=== PATIENT | male | born 1970 | race Caucasian/White ===

== ENCOUNTER → 2019-11-07 15:33 | Outpatient (CLI) | payer OTHER ==
[2015-10-07 05:02] VITALS: BMI 38.5
[~2019-11-07 15:33] MED LIST: ALDACTONE25 MG PO; ELAVIL10 MG PO; PATOWN MISC; PRAVACHOL20 MG PO; PROPRANOLOL HCL60 M1 PO; ROCALTROL0.25 MCG PO; SYNTHROID125 MCG PO; TERAZOSIN HCL2 MG PO; VITAMIN D31000 UNIT PO; ZESTRIL20 MG PO
== END | disposition home or self-care (01) ==
LOC: D.LAB 15:33
PROVIDERS: ATTEND Internal Medicine Pulmonary Disease
DX: Z11.59 Encounter for screening for other viral diseases (principal)

== ENCOUNTER → 2019-11-11 07:27 | Outpatient (CLI) | payer OTHER ==
[2015-10-07 05:02] VITALS: BMI 38.5
== END | disposition home or self-care (01) ==
LOC: D.CT 06-30 10:00 → D.RT 06-30 11:00 → D.CT 10-13 14:00
PROVIDERS: ATTEND Internal Medicine Pulmonary Disease
DX: Z11.59 Encounter for screening for other viral diseases (principal); R06.09 Other forms of dyspnea; R93.89 Abnormal findings on diagnostic imaging of other specified body structures

== ENCOUNTER → 2020-07-20 10:09 | Outpatient (CLI) | payer OTHER ==
[2020-02-18 15:52] VITALS: BMI 45.1
[~2020-07-20 10:09] MED LIST changes: +BUPROPION HCL100 M1 PO; +BUSPAR10 MG PO; +COZAAR50 MG PO; +FLOMAX0.4 MG PO; +FLORAJEN3 CAPS460 MG PO; +FLUTICASONE PRO16 GM NASAL; +GLUCOPHAGE500 MG PO; +GLUCOTROL XL 5 M5 MG PO; +HYDROCHLOROTH12.5 M1 PO; +INVOKAMET XR 11 EAC1 PO; +IPRAT-ALBUT 0.5-3 ML INH; +LASIX40 MG PO; +LEVOTHYROXINE125 MCG PO; +LEXAPRO20 MG PO; +LISINOPRIL-HCT1 EAC7; +LOSARTAN-HCTZ1 EAC1 PO; +MUCINEX600 MG PO; +PROCARDIA XL PO; +PROTONIX40 MG PO; +SYNTHROID25 MCG PO; +TESSALON PERLE100 MG PO; +VITAMIN D5000 UNI2 PO
== END | disposition home or self-care (01) ==
LOC: D.HCCARDIO 07-12 10:00
PROVIDERS: ATTEND Internal Medicine Cardiovascular Disease
DX: R06.09 Other forms of dyspnea (principal)

== ENCOUNTER 2020-07-28 06:46 | Day surgery (SDC) | payer OTHER ==
[~2020-07-28] VITALS: Ht 172.7 cm; Wt 134.9 kg
--- NOTE | ~2020-07-28 | HEMODYNAMI ---
PATIENT:CIRA IVEY MEDICAL RECORD: [id number] : 66 LOCATION:[facility]ONG ADMISSION DATE: 07/28/20 Generatedon::54 Patient name: CIRA IVEY Patient #: [id number] SSN: [id number] : 1970 Date of study: 07/28/2020 Page: Of Hemodynamic Procedure Report Patient Data Patient Demographics Procedure consent was obtained First Name: CIRA Gender: Male Last Name: UCHE : 1970 Middle Initial: SANJUANITA Age: 49 year(s) Patient #: [id number] Race: SSN: [id number] Additional ID: [id number] Contact details [address]: [address] [place] [address] State: [place] City: [place] Zip code: [address] Past Medical History Performed procedures and imaging results Date Procedure Procedure Results Comments 07/20/2020 Stress testing Positive->Intermediate with SPECT MPI risk Allergies: No known allergies Admission Admission Data Admission Date: 07/28/2020 Admission Time: 6:46 Arrival Date: 07/28/2020 Arrival Time: 0:00 Admit Source: Other Insurance Payor: Private health insurance [facility] #: [id number] Height (in.): 69 BSA: 2.48 (m2) Height (cm.): 175.26 BMI: 45.34 (kg/m2) Weight (lbs.): 307 Weight (kg.): 139.25 Lab Results Lab Result Date: 07/28/2020 Lab Result Time: 0:00 Biochemistry Name Units Result Min Max BUN mg/dl 26 --(----)-* 7 18 Creatinine mg/dl 1.3 --(---*)-- 0.6 1.3 eGFR ml/min 61.79306 *-(----)-- 90 120 NONAFRICAN CBC Name Units Result Min Max Hematocrit % 44.2 --(*---)-- 42 54 Hemoglobin g/dl 14.4 --(*---)-- 13.5 17.5 Procedure Procedure Types Cath Procedure Diagnostic Procedure [facility] w/Coronaries Sedation Charges Moderate Sedation 10-24 minutes Procedure Description Procedure Date Procedure Date: 07/28/2020 Procedure Start Time: 8:42 Procedure End Time: 8:52 Procedure Staff Name Function Michael Henry MD Performing Physician Maylin Man RN Nurse Lamonte Villanueva RN Nurse Jayda Dillard RT Scrub Kelley Martinez RT Monitor Procedure Data Cath Procedure Fluoroscopy Diagnostic fluoroscopy Total fluoroscopy Time: 2 time: 2 min min Diagnostic fluoroscopy Total fluoroscopy dose: 719 dose: 719 mGy mGy Contrast Material Contrast Material Type Amount (ml) Isovue 370 44 Entry Location Entry Primary Successful Side Size Upsize Upsize Entry Closure Natarajan ccessful Closure Location (Fr) 1 (Fr) 2 (Fr) Remarks Device Remarks Radial Right 6 Fr Mechanical artery Short Compression Estimated blood loss: 5 ml Diagnostic catheters Device Type Used For End Catheter Placement DIAGNOSTIC [place] 110cm 5 Procedure Fr catheter ([id number]) Procedure Complications No complications Procedure Medications Medication Administration Route Dosage 0.9% NaCl I.V. 100 ml/hr Oxygen etCO2 Nasal cannula 2 l/min Heparin Flush Bag added to field 2 bags (1000units/500ml NS) Radial Cocktail added to field 1 syringe (Verapamil 2mg/Nitro 400mcg/Heparin 1500units) Lidocaine 2% added to field 20 Oxygen 6 l/min Versed I.V. 1 mg Fentanyl I.V. 50 mcg Vasotec 2.5 mg Versed I.V. 1 mg Hemodynamics Rest BSA: 2.48 (m2) HGB: 14.4 (g/dl) O2 Consumption: Estimated: 266.18 (ml/min) O2 Co nsumption indexed: Estimated:107.33 (ml/min/m) Heart Rate: 38 (bpm) Pressure Samples Time Site Value (mmHg) Purpose Heart Use Rate(bpm) 8:46 LV 117/22,-2 Snapshot 61 8:47 AO 102/77(87) Pullback 69 8:47 LV 98/18,4 Pullback 69 Gradients Valve Time Site 1 Site 2 Mean SEP/DFP Peak To Heart Use (mmHg) (sec/min) Peak Rate (mmHg) (bpm) Aortic 8:47 LV AO 0 69 98/18,4 102/77(87) Calculations Valve P-P Mean Valve Index Valve Source Name Gradient Area Flow (cm2) Aortic 0 0 Snapshots Pre Cath Intra NCS Post Cath Vital Signs Time Heart Resp SPO2 etCO2 NIBP (mmHg) Rhythm Pain Sedation Rate (ipm) (%) (mmHg) Status Level (bpm) 8:10:32 61 24 98 37.7 164/108(128) NSR 0 (11) 10(A) , No pain 8:15:11 59 20 98 36.9 162/107(124) NSR 0 (11) 10(A) , No pain 8:19:49 57 19 95 46 147/109(121) NSR 0 (11) 10(A) , No pain 8:24:20 54 18 91 38.4 158/105(119) NSR 0 (11) 10(A) , No pain 8:28:54 57 17 93 36.2 161/107(131) NSR 0 (11) 10(A) , No pain 8:33:31 60 20 98 40.7 160/102(134) NSR 0 (11) 10(A) , No pain 8:39:19 58 18 91 45.9 141/91(130) NSR 0 (11) 9(A) , No pain 8:43:47 58 20 93 34.6 141/96(108) NSR 0 (11) 9(A) , No pain 8:48:20 66 21 96 44.4 120/82(108) NSR 0 (11) 9(A) , No pain 8:52:46 64 17 95 48.9 136/83(115) NSR 0 (11) 10(A) , No pain Medications Time Medication Route Dose Verified Delivered Reason Notes Effectiveness by by 8:09:12 0.9% NaCl I.V. 100 Michael Lamonte used for ml/hr [facility] Villanueva physics teacher 8:09:22 Oxygen etCO2 2 l/min Michael Aburto used for Nasal [facility] Vill[facility] physics teacher cannula 8:09:37 Heparin Flush added 2 bags Michael Lamonte used for Bag to [facility] Villanueva physics teacher (1000units/500ml field OCONNELL NS) 8:09:45 Radial Cocktail added 1 Michael Lamonte used for (Verapamil to syringe [facility] Villanueva physics teacher 2mg/Nitro field OCONNELL 400mcg/Heparin 1500units) 8:09:55 Lidocaine 2% added 20ml Michael Rodriguez for local to vial [facility] anesthetic field MD OCONNELL 8:21:25 Oxygen simple 6 l/min Michael Rodriguez used for pt slee ps mask [facility] procedure with cpap MD OCONNELL at night and more comfortable with a mask. 8:38:11 Versed I.V. 1 mg Michael Aburto for sedation [facility] Villanueva RN, MD 8:38:33 Fentanyl I.V. 50 mcg Michael Aburto for sedation [facility] Villanue[facility] RN, MD 8:40:28 Vasotec SIVP 2.5 mg [address] [facility] Villanueva RN hypertension 8:42:40 Versed I.V. 1 mg Michael Crumpy for sedation [facility] Villanueva RN, MD Procedure Log Time Note 7:39:00 Informed consent obtained and on chart 7:39:22 Arrival Date: 07/28/2020 12:00:00 AM 7:39:23 Admit Source: Other 7:39:25 Insurance Payor : Private health insurance 7:40:08 ACC Patient presents with Stable Angina CCS Anginal Class 2--Slight limitation of ordinary activity. 7:40:11 Procedure Status Elective Heart Cath (OP). 7:40:12 Time tracking: Regular hours (M-F 7:00 - 5:00) 7:40:18 Plan of Care:Hemodynamics will remain stable., Cardiac rhythm will remain stable., Comfort level will be maintained., Respiratory function will remain adequate., Patient/ family verbilizes understanding of procedure., Procedure tolerated without complication., Recovers from procedure without complications.. 7:41:35 Patient Height : 69 inches 7:41:39 Patient Weight : 307 lbs 7:41:48 Lab results pending. 7:53:47 Stress Test: yes; abnormal INFERIOR, APICAL, LATERAL 7:53:51 Alarms reviewed by R. N. 7:53:51 Sharps counted by scrub and verified by R.N. 7:54:20 Maylin Man RN sent for patient. Start room use. 7:57:59 Patient allergic to No known allergies 7:58:15 Family in waiting room. 7:58:18 Patient NPO since Midnight. 8:00:39 Patient diabetic? Yes. 8:02:30 Patient received from Pre/Post Procedure Room to CCL 1 Alert and oriented. Tansferred to table in Supine position. 8:02:31 Warm blankets applied, and tawanna hugger turned on for patient comfort. 8:02:32 Correct patient and procedure confirmed by team. 8:02:33 ECG and BP/O2 sat monitors applied to patient. 8:02:38 Pre-procedure instructions explained to patient. 8:02:39 Pre-op teaching completed and patient verbalized understanding. 8:02:44 Is the patient allergic to Iodine/contrast media? No. 8:02:46 Was the patient premedicated? Yes 8:02:47 Is patient on blood thinner?No 8:02:49 If diabetic: On Metformin? No 8:02:51 8:02:52 ----Pre-sedation anethsthesia assessment.---- 8:08:59 Vital chart was started 8:09:12 0.9% NaCl 100 ml/hr I.V. was administered by Lamonte Villanueva RN; used for procedure; Verbal order read back and verified. 8:09:22 Oxygen 2 l/min etCO2 Nasal cannula was administered by Lamonte Villanueva RN; used for procedure; Verbal order read back and verified. 8:09:37 Heparin Flush Bag (1000units/500ml NS) 2 bags added to field was administered by Lamonte Villanueva RN; used for procedure; Verbal order read back and verified. 8:09:45 Radial Cocktail (Verapamil 2mg/Nitro 400mcg/Heparin 1500units) 1 syringe added to field was administered by Lamonte Villanueva RN; used for procedure; Verbal order read back and verified. 8:09:55 Lidocaine 2% 20ml vial added to field was administered by Michael Henry MD; for local anesthetic; Verbal order read back and verified. 8:15:41 Full Disclosure recording started 8:15:46 Rhythm: sinus rhythm 8:15:56 Previous problem with sedation/anesthesia? No ? 8:15:57 Snore? Yes 8:15:58 Sleep apnea? Yes 8:15:59 Deviated septum? No 8:16:00 Opens mouth fully? Yes 8:16:01 Sticks out tongue? Yes 8:16:05 Airway obstruction? No ? 8:16:07 Dentures? No ? 8:16:09 Pre procedure: right dorsailis pedis pulse 1+ Palpable, but thready & weak; easily obliterated 8:16:12 Modified Costa's test Ulnar < 7 seconds 8:16:14 Patient pain scale 0/10 ?. 8:16:19 IV patent on arrival in right antecubital with 0.9% NaCl at [facility]. 8:16:26 Right Radial & Right Groin area was prepped with chlora-prep and draped in sterile fashion 8:16:29 Use device set Radial Dx or PCI 8:16:30 ACIST Syringe (56479) opened to sterile field. 8:16:31 Medline Cath Pack ([id number]) opened to sterile field. 8:16:31 Bag Decanter (2002S) opened to sterile field. 8:16:32 ACIST Hand Control (17123) opened to sterile field. 8:16:32 ACIST Manifold (77233) opened to sterile field. 8:16:34 MBrace Wrist Support ([id number]) opened to sterile field. 8:16:35 EMERALD Guide Wire (719-155) opened to sterile field. 8:16:36 SHEATH 6FR RAIN (6597973) opened to sterile field. 8:18:19 Lab Result : Hemoglobin 14.4 g/dl 8:18:19 Lab Result : eGFR NONAFRICAN 61.41534 ml/min 8:18:19 Lab Result : BUN 26 mg/dl 8:18:19 Lab Result : Creatinine 1.3 mg/dl 8:18:19 Lab Result : Hematocrit 44.2 % 8:21:25 Oxygen 6 l/min simple mask was administered by Michael Henry MD; used for procedure; pt sleeps with cpap at night and more comfortable with a mask. Verbal order read back and verified. 8:23:40 H&P Date Dictated: 07/28/2020 New H&P dictated by physician.. 8:34:42 Baseline sample Acquired. 8:37:51 Physician arrived 8:37:51 --------ALL STOP TIME OUT------ 8:37:52 Final Timeout: patient, procedure, and site verified with staff and physician. All members of the team are in agreement. 8:37:54 Right Radial & Right Groin site verified by team. 8:37:57 Fire Safety Assessment: A--An alcohol-based skin anteseptic being used preoperatively., C--Open oxygen or nitrous oxide is being used., D--An ESU, laser, or fiber-optic light is being used. 8:38:06 Physical assessment completed. ASA score P 2 - A patient with mild systemic disease as per Michael Henry MD. 8:38:11 Versed 1 mg I.V. was administered by Lamonte Villanueva RN; for sedation; Verbal order read back and verified. 8:38:11 3a) 45-59 Moderately reduced kidney function. 8:38:14 Maximum allowable contrast dose (3.7 X eGFR X 0.75)172 ml. 8:38:18 Sedation plan: IV Moderate Sedation Medication:Versed, Fentanyl 8:38:33 Fentanyl 50 mcg I.V. was administered by Lamonte Villanueva RN; for sedation; Verbal order read back and verified. 8:40:28 Vasotec 2.5 mg SIVP was administered by Lamonte Villanueva RN; for hypertension; Verbal order read back and verified. 8:42:07 Procedure started. 8:42:14 Local anesthetic to right radial artery with Lidocaine 2% by Michael Henry MD.INITIAL ACCESS ONLY 8:42:40 Versed 1 mg I.V. was administered by Lamonte Villanueva RN; for sedation; Verbal order read back and verified. 8:44:49 SHEATH 6FR RAIN (9757393) opened to sterile field. 8:44:56 A 6 Fr Short sheath was inserted into the Right Radial artery 8:45:37 A DIAGNOSTIC [place] 110cm 5 Fr catheter (415859) was advanced over the wire and used for Procedure. 8:45:45 LV gram done using MELTON 8:46:50 LV hemodynamics recorded. 8:46:52 Injector settings: Ml/sec: 5, Volume: 15, 8:47:01 EF : 55 % 8:47:21 LCA angiography performed. 8:47:23 Injector settings: Ml/sec: 3, Volume: 6, 8:48:40 RCA angiography performed. 8:48:43 Injector settings: Ml/sec: 3, Volume: 6, 8:49:12 Catheter removed. 8:49:17 ZEPHYR LARGE TR BAND (993635) opened to sterile field. 8:49:53 Sheath removed intact; hemostasis achieved with Mechanical Compression to the Right Radial artery. 8:49:56 Procedure ended.(Physican Out) 8:50:14 Fluoroscopy time 02.00 minutes. 8:50:18 Fluoroscopy dose: 719 mGy 8:50:18 Flurop Dose total: 719 8:50:24 Dose Area Product 61201 mGy/cm. 8:50:27 Contrast amount:Isovue 370 44ml. 8:50:29 Maximum allowable dose exceeded? No. 8:50:30 Sharps counted by scrub and verified by R.N. 8:50:33 [place] band inflated with 10cc of air. 8:50:50 Post Procedure Pulses reassessed and unchanged 8:50:52 Post procedure: right dorsailis pedis pulse 1+ Palpable, but thready & weak; easily obliterated. 8:50:55 Post-procedure physical assessment completed. ASA score P 2 - A patient with mild systemic disease as per Michael Henry MD. 8:50:58 Post procedure rhythm: unchanged. 8:51:01 Estimated blood loss: 5 ml 8:51:02 Post procedure instruction explained to patient.Patient verbalizes understanding. 8:51:03 Patient needs reinforcement of post procedure teaching. 8:51:09 Procedure type changed to Cath procedure, Diagnostic procedure, LHC, [facility] w/Coronaries, Sedation Charges, Moderate Sedation 10-24 minutes 8:51:46 Procedure and supply charges have been captured, reviewed, submitted and are correct. 8:51:50 Procedure Complication : No complications 8:51:53 [facility] Findings: MVD- MD will discuss options w/ pt 8:51:56 Operative report dictated upon procedure completion. 8:51:57 See physician's report for complete and final results. 8:51:58 Report given to Pre/Post Procedure Room. 8:52:00 Patient transfered to Pre/Post Procedure Room with Stretcher. 8:52:02 Procedure ended. 8:52:02 Full Disclosure recording stopped 8:52:06 End room use (Document Last) 8:52:43 End room use (Document Last) 8:52:55 End room use (Document Last) 8:54:31 Vital chart was stopped Device Usage Item Name Manufacture Quantity Catalog Hospital Part Current Minima l Lot# / Number Charge Number Stock Stock Serial# Code ACIST Acist 1 [id number] 527779 [id number] [id number] 20 Syringe Medical (29179) Systems Inc Medline Medline 1 [id number] 091930 09129 702045 5 Cath Pack ([id number]) Bag Microtek 1 960892 99958 211295 5 Decanter Medical Inc. () ACIST Hand Acist 1 11997 970368 682694 965486 5 Control Medical (24990) Systems Inc ACIST Acist 1 45699 416992 077256 539630 5 Manifold Medical (05471) Systems Inc MBrace Advanced 1 [id number] 145552 26789 760371 5 Wrist Vascular Support Dynamics ([id number]) EMERALD Cardinal 1 502-185 198163 539637 487464 5 Guide Wire Health (777-107) SHEATH 6FR Cardinal 2 1521447 380247 9462869 083542 5 [facility] (7538039) DIAGNOSTIC Terumo 1 40-8193 752023 499570 073347 5 [place] 110cm 5 Fr catheter (001198) ZEPHYR Cardinal 1 342962 068434 5101985 930447 5 LARGE TR Health BAND (306657) Signature Audit Helm Stage Time Signature Unsigned Intra-Procedure 07/28/2020 Kelley Martinez 8:52:43 AM RT(R) Intra-Procedure 07/28/2020 Maylin Man RN 8:52:55 AM Intra-Procedure 07/28/2020 Michael Sarmiento 8:54:30 AM Kun OCONNELL [facility] [address] [place] [address]
[2020-07-28] MEDS ORDERED: GLUCOTROL ER2.5 MG PO (07:19)
[2020-07-28] MEDS ORDERED: ALDACTONE25 MG PO (07:20)
[2020-07-28] MEDS ORDERED: PROTONIX40 MG PO (07:21)
[2020-07-28] MEDS ORDERED: JARDIANCE10 MG PO (07:24)
[2020-07-28 07:25] VITALS: BP 139/82; Ht 172.7 cm; Wt 134.9 kg
[2020-07-28 08:03] LABS: BASOPHILS 0.8 % (0-2); EOSINOPHILS 3.4 % (0-7); HEMATOCRIT 44.2 % (42.0-54.0); HEMOGLOBIN 14.4 g/dL (13.5-17.5); LYMPHOCYTES 22.8 % (15-50); MCH 29.3 pg (26.0-34.0); MCHC 32.6 g/dL (31.0-37.0); MCV 89.9 fL (80.0-100.0); MEAN PLATELET VOLUME 8.6 fL (7.4-10.4); MONOCYTES 8.2 % (2-11); NEUTROPHILS 64.8 % (40-80); PLATELET COUNT 236 10x3/uL (130-400); RBC 4.92 10x6/uL (4.20-6.10); RDW 15.6 % (11.5-14.5); WBC 6.2 10x3/uL (4.8-10.8)
[2020-07-28 08:16] LABS: ANION GAP 13.3 mmol/L (8-16); CALCIUM 8.8 mg/dL (8.5-10.1); CARBON DIOXIDE 27.8 mmol/L (21.0-32.0); CHOL - HDL RATIO 6.4 ratio (2.3-4.9); CREATININE - SERUM 1.3 mg/dL (0.6-1.3); LDL-HDL RATIO 3.3 ratio (1.5-3.5); POTASSIUM - SERUM 4.1 mmol/L (3.5-5.1)
--- NOTE | 2020-07-28 09:02 | NUR ---
PT ARRIVED BY STRETCHER. PLACED ON MONITORS. ASSESSMENT COMPLETED. VSS AT THIS TIME. CALL LIGHT WITHIN REACH. FAMILY AT BEDSIDE. DR. KEITA ROUNDED AND SPOKE WITH PT'S MOTHER.
--- NOTE | 2020-07-28 09:17 | NUR ---
RIGHT WRIST Z BAND IN PLACE. NO BLEEDING/HEMATOMA NOTED. CALL LIGHT WITHIN REACH. PT RESTING COMFORTABLY.
--- NOTE | 2020-07-28 09:45 | NUR ---
PT RESTING COMFORTABLY. VSS AT THIS TIME. CALL LIGHT WITHIN REACH. FAMILY AT BEDSIDE. RIGHT WRIST Z BAND IN PLACE. NO BLEEDING/HEMATOMA NOTED.
--- NOTE | 2020-07-28 10:00 | NUR ---
2cc OF AIR REMOVED FROM Z BAND. NO BLEEDING/HEMATOMA NOTED. CALL LIGHT WITHIN REACH. PT MORE ALERT. HEAD OF BED AT 45 DEGREES. SET UP WITH SANDWICH TRAY AND DRINK. DENIES NAUSEA/PAIN.
--- NOTE | 2020-07-28 10:15 | NUR ---
3cc OF AIR REMOVED FROM Z BAND. NO BLEEDING/HEMATOMA. CALL LIGHT WITHIN REACH. VSS AT THIS TIME. PT VOIDED 300cc OF CLEAR YELLOW URINE IN URINAL WITHOUT DIFFICULTY.
--- NOTE | 2020-07-28 10:30 | NUR ---
5cc OF AIR REMOVED FROM Z BAND. NO BLEEDING/HEMATOMA NOTED. CALL LIGHT WITHIN REACH. VSS AT THIS TIME.
--- NOTE | 2020-07-28 10:45 | NUR ---
Z BAND REMOVED AND DRESSING APPLIED. NO BLEEDING/HEMATOMA NOTED. RIGHT WRIST BRACE IN PLACE. PIV D/C'D WITH CATH TIP INTACT. TOLERATED WELL. PT INSTRUCTED TO GET UP AND DRESSED AT THIS TIME. FAMILY AT BEDSIDE TO ASSIST. CALL LIGHT LEFT WITHIN REACH. NO ASSISTANCE NEEDED.
--- NOTE | 2020-07-28 11:05 | NUR ---
RIGHT WRIST DRESSING C/D/I. NO S/S OF HEMATOMA NOTED. DISCUSSED DISCHARGE INSTRUCTIONS WITH PT. HE VOICED UNDERSTANDING. PT'S BROTHER AT BEDSIDE ALSO. PT AMBULATED TO RESTROOM AND VOIDED WITHOUT DIFFICULTY. STEADY GAIT NOTED.
--- NOTE | 2020-07-28 11:15 | NUR ---
PT TAKEN OUT TO VEHICLE BY WHEELCHAIR. NO S/S OF DISTRESS NOTED. ALL BELONGINGS AND PAPERWORK IN HAND.
--- NOTE | 2020-07-29 08:19 | HP ---
PATIENT: CIRA IVEY MEDICAL RECORD: [id number] ACCOUNT: [id number] LOCATION:LEANN : 66 ADMISSION DATE: 07/28/20 PCP: KEON RAMIREZ HISTORY AND PHYSICAL EXAMINATION HISTORY OF PRESENT ILLNESS: A 49-year-old gentleman with no known history of coronary artery disease, referred by Dr. Ramirez in [place] for worsening angina, multiple risk factors including diabetes mellitus, hypertension, hyperlipidemia. Subsequently, he underwent Cardiolite stress testing, which showed significant reversibility at least 2 vessel artery distribution. He is being brought for diagnostic angiography. PAST MEDICAL HISTORY: 1. History of hypertension. 2. Hyperlipidemia. 3. Diabetes mellitus. 4. Obstructive pulmonary disease. MEDICATIONS: Include: Metformin 1 gram b.i.d., losartan 50/12.5 every day, Lexapro 20 every day, Synthroid 125 every day, Lasix 40 every day, Jardiance 10 every day, glipizide 2.5 every day. SOCIAL HISTORY: Nonsmoker, nondrinker. Easily takes care of all his ADLs.. PHYSICAL EXAMINATION: GENERAL: Pleasant. No acute distress. HEENT: He is above ideal body weight. NECK: No JVD, no carotid bruit. CARDIOVASCULAR: Regular. LUNGS: Singh clear. ABDOMEN: Soft and nontender. Pulses 2+. EXTREMITIES: No edema. IMPRESSION: Rapidly progressing angina, multiple risk factors for coronary artery disease. PLAN: We will plan for diagnostic angiography and intervention based on above. TRANSINT:[id number] Voice Confirmation ID: [id number] DOCUMENT ID: [id number] LYDIA KEITA MD at 0819 CC: [id number] DICTATION DATE: 07/27/20 1451 JD EDWARDS: 07/28/20 0513 [facility] 07/28/20 [facility] [address] [place] [address]
--- NOTE | 2020-07-29 08:19 | OP ---
PATIENT NAME: CIRA IVEY MEDICAL RECORD: [id number] :66 LOCATION:D.CAT ADMISSION DATE: SURGEON: LYDIA KEITA MD DATE OF OPERATION: 07/28/2020 PROCEDURE: Left heart catheterization, selective coronary angiography, right radial approach. CATHETERS: [place] catheter. Radial sheath. The procedure was well tolerated. The patient was returned to the roberson. Sheath removed. TR band was placed. FINDINGS: Left ventriculography in 30-degree MELTON view; normal wall motion and normal systolic function. CORONARY ANATOMY: Left main: Left main is free of disease. LAD: Free of disease. It is a diagonal system. CIRCUMFLEX: Left dominant system, free of disease. RIGHT CORONARY ARTERY: Rudimentary with some mild luminal wall irregularities, but no flow obstructive stenosis. IMPRESSION: Essentially normal arteries, normal coronary anatomy. TRANSINT:[id number] Voice Confirmation ID: [id number] DOCUMENT ID: [id number] LYDIA KEITA MD at 0819 CC: [id number] DICTATION DATE: 07/28/20 0854 CARPENTER: 07/28/201926 [facility] 07/28/20 [facility] [address] [place] [address]
== END 2020-07-28 11:15 | disposition home or self-care (01) ==
LOC: D.CATH 06:46
PROVIDERS: ATTEND Internal Medicine Interventional Cardiology
DX: I25.119 Atherosclerotic heart disease of native coronary artery with unspecified angina pectoris (principal); I10 Essential (primary) hypertension; E78.5 Hyperlipidemia, unspecified; E11.9 Type 2 diabetes mellitus without complications; J44.9 Chronic obstructive pulmonary disease, unspecified; R94.39 Abnormal result of other cardiovascular function study